=== PATIENT | male | born 1945 | race Caucasian/White ===

== ENCOUNTER → 2020-08-29 | Outpatient (CLI) | payer OTHER ==
[~2020-08-29] MED LIST: ALBUTEROL2.5 MG/3 M INH; BREO ELLIPTA 11 EACH IH; DOXYCYCLINE 10100 MG PO; LEVAQUIN 750 M750 MG PO; LISINOPRIL5 MG PO; LOPRESSOR50 PO; METFORMIN HCL500 MG PO; METHOTREXATE 22.5 MG PO; PREDNISONE 20 M20 MG PO; PREDNISONE 5 MG5 M1 PO; ZOCOR20 MG PO
== END ==
LOC: CAT 09:29
PROVIDERS: ATTEND Internal Medicine
DX: Z12.2 Encounter for screening for malignant neoplasm of respiratory organs (principal); R91.8 Other nonspecific abnormal finding of lung field; J98.11 Atelectasis; K75.3 Granulomatous hepatitis, not elsewhere classified; M25.78 Osteophyte, vertebrae; I25.10 Atherosclerotic heart disease of native coronary artery without angina pectoris; J92.9 Pleural plaque without asbestos; Z87.891 Personal history of nicotine dependence

== ENCOUNTER → 2021-02-16 | Outpatient (CLI) | payer OTHER | END | disposition home or self-care (01) | LOC: CAT 12:44 | PROVIDERS: ATTEND Internal Medicine | DX: R91.1 Solitary pulmonary nodule (principal); J92.9 Pleural plaque without asbestos ==